=== PATIENT | female | born 1975 | race Caucasian/White ===

== ENCOUNTER 2023-12-01 10:03 | Outpatient (CLI) | payer OTHER, SELFPAY ==
--- NOTE | 2023-12-01 10:19 | ECG_ITS ---
Measurements Intervals [place] Rate: 69 P: 17 SD: 145 QRS: -8 QRSD: 75 T: 3 QT: 382 QTc: 410 Interpretive Statements SINUS RHYTHM LOW QRS VOLTAGE IN PRECORDIAL LEADS [QRS DEFLECTION < 1.0 mV IN CHEST LEADS] NONSPECIFIC T-WAVE ABNORMALITY ABNORMAL ECG NO PREVIOUS ECG AVAILABLE FOR COMPARISON Electronically Signed On 12-01-2023 13:21:38 LIGHT OIL OPERATOR by Dick Corral M.D.
[2023-12-01 10:50] LABS: Hematocrit 43.1 % (37.0-47.0)
== END 2023-12-01 10:04 | disposition home or self-care (01) ==
PROVIDERS: PCP Internal Medicine; Visit Provider Anesthesiology
DX: Z01.818 Encounter for other preprocedural examination (principal); R94.31 Abnormal electrocardiogram [ECG] [EKG]
CPT/HCPCS: 36415; 85014; 85018; 93005

== ENCOUNTER 2023-12-04 02:06 | Day surgery (SDC) | payer OTHER, SELFPAY ==
[2023-11-23 09:23] VITALS: BMI 32.1
--- NOTE | 2023-11-23 09:30 | PC.NURSE ---
Report to the Outpatient Waiting Room, entrance under the green pavilion located off [facility], at time 8:30 on date 12/04/23. Planned Procedure Time: 10:30. Time changes happen often and if your time is changed the preop area will call you the afternoon before. - You and your visitor will be asked to self-screen and do not enter if you have any COVID symptoms. - A mask is optional within the hospital at this time. Patients may have clear liquids (water, carbonated beverages, clear teas, apple juice) until 3 hours prior to surgery (7:30) with a maximum of 20 ounces. - No food from midnight until time of surgery Take the following medications with a SIP of water the morning of surgery: NONE DO NOT STOP ANY OF YOUR OTHER PRESCRIPTION MEDICATIONS PRIOR TO SURGERY ?EXCEPT THE FOLLOWING Medications to discontinue per physician: CHANTIX Date to take last dose: CHECK WITH DR. MENG Please no make-up, nail vietnamese, hairspray, perfume, deodorant, or body powder the day of surgery. No jewelry (including any body piercings) or valuables the day of surgery, leave them at home. Please take a shower or bath the night before, or the morning of, surgery with an antibacterial soap. Wear comfortable, loose fitting clothing. - Jewelry must be removed prior to entering the operating room. Rings and piercings that are not removed may be cut off. - The hospital will not accept responsibility for valuables. - Please leave all valuables, including medications, at home the day of surgery. If you are going home after surgery, a licensed wood pile driver operator must drive you home. - NO public transportation without another adult if you receive anesthesia. - We recommend that an adult stay with you for 24 hours following discharge. - We also recommend that you do not drive, make important decision, drink alcoholic beverages, or take any drugs that were not prescribed by your health care provider for at least 24 hours after your discharge time. Follow any additional instructions given to you from your surgeon. If you or anyone in your household have experienced Covid symptoms in the past week, please notify your surgeon or the nurse liaison at the phone number below for possible testing. Telephone instructions given to PT - VIVEK JUNG and asked if any additional questions and then verbalized understanding. Patient advised to call surgeon office or pre surgery nurse liaison [phone] if any additional questions.
[2023-12-04] VITALS (8 sets, daily range): BP systolic 88–112; BP diastolic 48–63; PULSE 81–104; RESP 14–16; TEMP 36.3–36.6; O2SAT 93–99
[2023-12-04 08:28] LABS: Urine Cotinine NEGATIVE
[2023-12-04] MEDS: ACETAMINOPHEN 500 MG TABLET 1000 MG PO (09:20)
[2023-12-04] MEDS: LACTATED RINGERS 1,000 ML 30 ML IV CONT ×3 (09:25→16:26)
[2023-12-04] MEDS: TRANEXAMIC ACID 1,000MG/ISO100 1,000 MG/100 ML BAG 200 MG IVPB (09:25)
--- NOTE | 2023-12-04 09:32 | WPDHPUPDATE1 ---
History and Physical Update Update Date/Time: 12/04/23 09:32 History and Physical has been reviewed, including an updated exam of the patient. There are NO changes in the patient's condition. Risks, benefits, and alternatives have been discussed and questions answered. Patient agrees to proceed with procedure.
--- NOTE | 2023-12-04 09:40 | WPDHPUPDATE1 ---
History and Physical Update Update Date/Time: 12/04/23 09:40 History and Physical has been reviewed, including an updated exam of the patient. There are NO changes in the patient's condition. Risks, benefits, and alternatives have been discussed and questions answered. Patient agrees to proceed with procedure.
--- NOTE | 2023-12-04 09:50 | W.PM.PROC2 ---
Procedure Note - Detailed Date of Procedure 12/04/23 Pre-op Diagnosis skin laxity, Umb Hernia Post-op Diagnosis Same Procedure Performed Progressive tension abdominoplasty with suction lipectomy Surgeon Ethan West MD Anesthesia General Findings Lipoaspirate: 3,000 cc Tissue removed: 1706.1 grams Description of Procedure They are here today for the above procedures. Previously and again today the risks, benefits, alternatives were discussed in extensive detail. I wanted them to be very realistic about the risks involved as well as expectations. We discussed aftercare and what to monitor for. I was very upfront about the risks of wound breakdown leading to loss of skin, open wounds, and need for additional procedures with permanent abdominal deformity. We discussed DVT/PE risks and management. Made sure answered all of their questions to their satisfaction today and consent was obtained. They were marked in the preoperative holding area with their verification. The patient was taken to the operating room. Anesthesia was provided by anesthesiology. A Cedeño catheter was started. Placed prone on the operating room table with care taken to protect from injury. Prepped and draped in a standard sterile fashion. A surgical time-out was taken. Stab incisions were made and tumescent solution was infiltrated. Once adequate time was allowed for hemostasis a 5mm basket and 3mm multi hole cannula were utilized to complete suction lipectomy based on S.A.F.E. technique in multiple planes and passes. Suction lipectomy continued to result based on pre-operative planning, intra-operative observation, and rolling pinch test which were in full agreement. A 10 blade was used to make the upper incision and dissection was continued inferior elevating what we necessary for closure. I placed patient in slight jackknife position and excised intervening tissue. This was closed with 3 point suture with 2-0 Vicryl followed 2-0 PDO strattafix, 3-0 stratafix ,running subcuticular 4-0 Monocryl, and tissue glue. Laterally shara were placed for turning. Patient was then placed supine with care taken to protect from injury. I placed the patient in a flexed position to verify the upper and lower markings would reach. I then placed supine. A thorough abdominal examination was completed. Stab incisions were made and tumescent solution infiltrated. Stab incisions were made and tumescent solution was infiltrated. Once adequate time was allowed for hemostasis a 5mm basket and 3mm multi hole cannula were utilized to complete suction lipectomy based on S.A.F.E. technique in multiple planes and passes. Care was taken to protect the umbilical hernia. Suction lipectomy continued to result based on pre-operative planning, intra-operative observation, and rolling pinch test which were in full agreement. A 10 blade was used to make the upper incision. I continued dissection down to the level of fascia. Elevated just what was necessary for repair of the diastasis. I then again flexed the bed to verify the upper skin flap would reach the lower markings without tension. Once verified I placed her supine once again and a 10 blade used to make the lower incision. I elevated up to level the umbilicus and left the umbilicus intact on a well-vascularized stalk. The intervening tissue was removed. A 2 mm blunt cannula with 0.5% bupivacaine was injected deep to the fascia bilaterally. Umbilical hernia repair was completed by Dr. Connelly. See his operative note for details. I plicated the diastasis recti using 0 PDO Stratafix barbed suture. This was in 2 separate layers using 2 separate sutures as well. After the patient was flexed (below) plicated the fascia with 0 PDO Stratafix in two separate layers. The patient was flexed and starting from superior to inferior began plication using 2-0 Vicryl to obliterate all space in a standard progressive tension fashion
--- NOTE | 2023-12-04 10:00 | WPDANESEPPF ---
Anes - Initial Pre Proc Eval Procedure: Operation Date: 12/04/23 10:30 Proposed Procedures p Abdominoplasty with Liposuction, - Ethan West MD s Umbilical Hernia Repair with Possible Mesh - Erin Connelly MD Date/Time: 12/04/23 10:00 Surgeon: Ethan West MD Pre Op Diagnosis: skin laxity, Umb Hernia Patient Data Age: 48 Gender: F Height: 1.63 m Weight: 84.85 kg Allergies Allergy/AdvReac Type Severity Reaction Status Date / Time No Known Allergies Allergy Verified 11/23/23 09:22 Home Medications Medication Instructions Recorded Confirmed Type spironolactone 25 mg tablet 25 mg PO DAILY 11/16/23 11/23/23 History varenicline 1 mg tablet 1 mg PO BID 11/16/23 11/23/23 History Laboratory Tests 12/04/23 08:12 Cotinine Negative Patient hx anesthesia problems: none Family hx anesthesia problems: none Results Review: All pre-operative results and documents have been reviewed as part of the pre-operative evaluation. [facility] Past Medical History Medical History Anxiety and depression Surgical History Surgical History H/O thumb surgery History of tonsillectomy Social History Social History Smoking status: Former smoker Tobacco type: cigarettes and e-cigarettes/vaping Smoking end date: 08/20/23 Additional smoking assessment comments: QUIT CIGARETTES 2011 (AT LEAST 1 PPD X 18 YRS) Alcohol intake: current Alcohol use details: VERY RARE Substance use: never Substance use type: does not use Living arrangements: with family Occupation/Education: occupation Additional occupation/education comments: MA Spiritual care concerns: No Anes - Eval Final PreProcedure Day of Procedure 12/04/23 10:00 Patient weight: obese Heart: regular rate and rhythm Lungs: clear to auscultation Airway: Mallampati scale class II Neurological: alert and oriented Last oral intake: >/= 8 hours ASA classification: II Emergent: no Anesthetic plan: proceed Anesthesia type and monitoring: general ETT and standard monitoring Results Review: All pre-operative results and documents have been reviewed as part of the pre-operative evaluation. Informed Consent: The patient's anesthetic plan and its attendant risks and benefits were discussed with the patient/family/POA. Questions were solicited and answers provided to the satisfaction of the patient/family/POA.
[2023-12-04] MEDS: ceFAZolin 2 GM/D5W 50 ML 2 GM/50 ML BAG IVPB (10:33)
[2023-12-04] MEDS: BUPIVACAINE/EPINEPHRINE 0.5% 30 ML VIAL 60 ML INFILTRATE (11:04)
[2023-12-04] MEDS: LACTATED RINGERS IRRIG 1,000 ML, LIDOCAINE HCL 1% LOCAL INJ 50 ML, EPINEPHrine HCL INJ ... INFILTRATE ×3 (11:05→13:33)
--- NOTE | 2023-12-04 13:57 | W.PM.PROC2 ---
Procedure Note - Detailed Date of Procedure 12/04/23 Pre-op Diagnosis umbilical hernia Post-op Diagnosis Same Procedure Performed Repair of umbilical hernia with defect measuring approximately 0.7 cm Surgeon Erin Connelly MD Anesthesia General Indications 48-year-old female presented to the office with a small umbilical hernia. Patient reports area is somewhat symptomatic especially with straining. Patient concurrently going to have abdominal plasty with Dr. Ethan West. Findings 0.7 cm umbilical hernia with incarcerated fat Description of Procedure The patient was taken the operating room placed the supine position. The patient underwent general anesthesia and Dr. Ethan West performed abdominoplasty with liposuction. The exposure of the umbilical hernia was done and I was called into the room this time. A time-out was then done to verify the patient's identity, as well as the procedure being performed. I was able to locate the incarcerated umbilical hernia just superior to the umbilicus. Using careful dissection, I was able to separate the hernia off the overlying umbilicus. At this point, I excised the hernia sac and reduce the preperitoneal fat back into the peritoneal cavity. This left a 0.7 cm defect. I then closed the defect with interrupted [address] West then returned to complete abdominopasty. Estimated Blood Loss 5 Drains No Packing No Pathology None sent Complications No immediate complications Condition Stable Disposition No change [facility] Billing Surgery - Charge Forward: Surgery Billing
[2023-12-04] MEDS: fentaNYL CITRATE INJ (*CRX) 100 MCG/2 ML VIAL 25 MCG IV PUSH ×6 (15:14→15:43)
[2023-12-04] MEDS: ONDANSETRON INJ 4 MG/2 ML VIAL IV PUSH (16:12)
--- NOTE | 2023-12-04 17:42 | SUR.PHASEII ---
LESS THAN 5 ML IN J-P DRAIN. MEASURING CUPS GIVEN.
== END 2023-12-04 17:10 | disposition home or self-care (01) ==
PROVIDERS: PCP Internal Medicine; Referring Provider Surgery; Visit Provider Surgery Plastic and Reconstructive Surgery
PROC: (CPT 15877; principal; 2023-12-04 10:30)
PROC: (CPT 49592; 2023-12-04 10:30)
DX: Z41.1 Encounter for cosmetic surgery (principal); L57.4 Cutis laxa senilis; K42.0 Umbilical hernia with obstruction, without gangrene; F41.8 Other specified anxiety disorders; Z87.891 Personal history of nicotine dependence; E66.9 Obesity, unspecified; Z68.31 Body mass index [BMI] 31.0-31.9, adult
CPT/HCPCS: 49592; 15877; 15830; 15847; 80307; A9270; J0171; J0690; J1170; J2250; J2371; J2405; J3010; J7120